=== PATIENT | female | born 1990 | race Two or more races ===

== ENCOUNTER 2016-05-29 10:42 | Emergency (ER) | payer MEDICAID ==
--- NOTE | 2016-05-29 11:24 | EDM.PDOC ---
ED HPI GENERAL MEDICAL PROBLEM - General Chief Complaint: General Stated Complaint: SHOULDER Time Seen by Provider: 05/29/16 11:00 Source of Information: Reports: Patient History Limitations: Reports: No limitations - History of Present Illness INITIAL COMMENTS - FREE TEXT/NARRATIVE: History of present illness: [25-year-old female coming in presenting with complaints of right shoulder stiffness and pain. Patient indicates she sometimes has muscle spasms which causes stiffness and decreases her range of motion until she gets some muscle relaxers. Patient also indicates that she is having an acute flareup of her hidradenitis, and would like a steroid burst as well as an Rx for secondary infection until she can get in to be evaluated and establish with a xerox machine mechanic.] Review of systems: As per history of present illness and below otherwise all systems reviewed and negative. Past medical history: As per history of present illness and as reviewed below otherwise noncontributory. Surgical history: As per history of present illness and as reviewed below otherwise noncontributory. Social history: No reported history of drug or alcohol abuse. Family history: As per history of present illness and as reviewed below otherwise noncontributory. Physical exam: HEENT: Atraumatic, normocephalic, pupils reactive, negative for conjunctival pallor or scleral icterus, mucous membranes moist, throat clear, neck supple, nontender, trachea midline. Lungs: Clear to auscultation, breath sounds equal bilaterally, chest nontender. Heart: S1S2, regular, negative for clicks, rubs, or JVD. Abdomen: Soft, nondistended, nontender. Negative for masses or hepatosplenomegaly. Negative for costovertebral tenderness. Pelvis: Stable nontender. Genitourinary: Deferred. Rectal: Deferred. Extremities: Atraumatic, negative for cords or calf pain. Neurovascular unremarkable. Neuro: Awake, alert, oriented. Cranial nerves II through XII unremarkable. Cerebellum unremarkable. Motor and sensory unremarkable throughout. Exam nonfocal. General this is benign save some palpable muscle spasm in the right sternocleidomastoid region as well as the levator scapula. Diagnostics: [] Therapeutics: [] Impression: [Muscle spasm, hidradenitis exacerbation, secondary skin infection] Plan: [Structure, Medrol Dosepak, Keflex] Definitive disposition and diagnosis as appropriate pending reevaluation and review of above. - Related Data Allergies Allergy/AdvReac Type Severity Reaction Status Date / Time No Known Allergies Allergy Verified 05/29/16 11:22 Home Meds: Home Meds Cephalexin [Keflex] 500 mg PO QID #40 capsule 05/29/16 [Rx] Orphenadrine [Norflex] 100 mg PO BID #28 tab.er 05/29/16 [Rx] methylPREDNISolone [Medrol] 4 mg PO DAILY #21 tab.ds.pk 05/29/16 [Rx] ED ROS GENERAL - Review of Systems Review Of Systems: See Below (See history of present illness) ED EXAM, GENERAL - Physical Exam Exam: See Below (See history of present illness) Departure - Departure Time of Disposition: 11:27 Disposition: Home, Self-Care 01 Condition: good Clinical Impression: Muscle spasm, Axillary hidradenitis suppurativa, Skin infection, bacterial Additional Instructions: The following information is given to patients seen in the emergency department who are being discharged to home. This information is to outline your options for follow-up care. We provide all patients seen in our emergency department with a follow-up referral. The need for follow-up, as well as the timing and circumstances, are variable depending upon the specifics of your emergency department visit. If you don't have a primary care physician on staff, we will provide you with a referral. We always advise you to contact your personal physician following an emergency department visit to inform them of the circumstance of the visit and for follow-up with them and/or the need for any referrals to a consulting specialist. The emergency department will also refer you to a specialist when appropriate. This referral assures that you have the opportunity for follow-up care with a specialist. All of these measure are taken in an effort to provide you with optimal care, which includes your follow-up. Under all circumstances we always encourage you to contact your private physician who remains a resource for coordinating your care. When calling for follow-up care, please make the office aware that this follow-up is from your recent emergency room visit. If for any reason you are refused follow-up, please contact the [facility] Emergency Department at and asked to speak to the emergency department charge nurse. Take medication as directed Followup with primary care provider in one to 2 days Attempt to followup with a xerox machine mechanic Turned ED as needed as discussed
[2016-05-29 11:26] VITALS: BP 135/81
== END 2016-05-29 12:22 | disposition home or self-care (01) ==
LOC: MW.ED 10:42
DX: L73.2 Hidradenitis suppurativa (principal); M62.838 Other muscle spasm; Z79.899 Other long term (current) drug therapy
CPT/HCPCS: 99283

== ENCOUNTER 2018-09-23 15:12 | Emergency (ER) | payer MEDICAID, SELFPAY ==
[2018-09-23] MEDS ORDERED: Albuterol/Ipratropium 3.0-0.5 MG/3 ML Neb Soln NEB ONE (15:14)
[2018-09-23] MEDS ORDERED: methylPREDNISolone Sodium Succinate 125 MG/2 ML SDV IM ONE (15:15)
--- NOTE | 2018-09-23 15:18 | EDM.PDOC ---
ED HPI GENERAL MEDICAL PROBLEM - General Chief Complaint: Respiratory Problem Stated Complaint: SOB Time Seen by Provider: 09/23/18 15:12 Source of Information: Reports: Patient History Limitations: Reports: No Limitations - History of Present Illness INITIAL COMMENTS - FREE TEXT/NARRATIVE: HISTORY AND PHYSICAL: History of present illness: Patient is a 27-year-old female who presents to the emergency room with complaints of shortness of breath since 1 PM. She states that symptoms started suddenly after walking up the stairs and have not been alleviated with rest. She was informed by her primary care provider that she may have "COPD because I breathe funny". Although she does not take any inhalers or rescue medications for her breathing. Patient denies any fever, chills, headache, change in vision, syncope or near syncope. Denies any chest pain, back pain or cough. Denies any abdominal pain, nausea, vomiting, diarrhea, constipation or dysuria. Patient has been eating and drinking appropriately. Denies any chance of Review of systems: As per history of present illness and below otherwise all systems reviewed and negative. Past medical history: As per history of present illness and as reviewed below otherwise noncontributory. Surgical history: As per history of present illness and as reviewed below otherwise noncontributory. Social history: See social history for further information Family history: As per history of present illness and as reviewed below otherwise noncontributory. Physical exam: General: Well-developed and well-nourished 27-year-old female. Alert and oriented. Nontoxic appearing and in no acute distress. HEENT: Atraumatic, normocephalic, pupils equal and reactive bilaterally, negative for conjunctival pallor or scleral icterus, mucous membranes moist, throat clear, neck supple, nontender, trachea midline. No drooling or trismus noted. No meningeal signs. No hot potato voice noted. Lungs: Clear to auscultation, breath sounds equal bilaterally, chest nontender. Heart: S1S2, regular rate and rhythm without overt murmur Abdomen: Soft, nondistended, nontender. Negative for masses or hepatosplenomegaly. Negative for costovertebral tenderness. Pelvis: Stable nontender. Skin: Intact, warm, dry. No lesions or rashes noted. Extremities: Atraumatic, moves all extremities per self without difficulty or deficits, negative for cords or calf pain. Neurovascular unremarkable. Neuro: Awake, alert, oriented. Cranial nerves II through XII unremarkable. Cerebellum unremarkable. Motor and sensory unremarkable throughout. Exam nonfocal. Notes: Patient's lung sounds are clear, oxygen saturation is within normal limits. She does appear to be hyperventilating, coaching for slow deep breathing was done. She denies any history of anxiety and does not feel anxious at this time. We'll do a DuoNeb for supportive care. Chest x-ray shows no acute findings. Supportive care measures were reviewed and discussed. Voices understanding and is agreeable to plan of care. Denies any further questions or concerns at this time. Diagnostics: Chest x-ray Therapeutics: Solu-Medrol IM, DuoNeb Prescription: Pro-Air Inhaler Impression: Dyspnea Plan: 1. Take the inhaler as needed 2. Tylenol and/or Ibuprofen as needed. 3. Follow up with your primary care provider as discussed. Return to the ED as needed and as discussed. Definitive disposition and diagnosis as appropriate pending reevaluation and review of above. 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 ED EXAM, GENERAL - Physical Exam Exam: See Below (See dictation) Course - Vital Signs Last Recorded V/S: Last Vital Signs Temp 96.7 F 09/23/18 15:14 Pulse 94 09/23/18 15:14 Resp 28 H 09/23/18 15:14 BP 115/74 09/23/18 15:14 Pulse Ox 100 09/23/18 15:14 - Orders/Labs/Meds Orders: Active Orders 24 hr Category Date Time Status EKG 12 Lead [EKG Documentation Completion] [RC] STAT Care 09/23/18 15:15 Inactive RT Aerosol Therapy [RC] ASDIRECTED Care 09/23/18 15:14 Active Meds: Medications Discontinued Medications Generic Name Dose Route Start Last Admin Trade Name Emmanuel PRN Reason Stop Dose Admin Albuterol/Ipratropium 3 ml 09/23/18 15:14 09/23/18 15:20 Duoneb 3.0-0.5 Mg/3 Ml NEB 09/23/18 15:15 3 ml ONETIME ONE Administration Methylprednisolone Sodium Succinate 125 mg 09/23/18 15:15 09/23/18 15:20 Solu-Medrol IM 09/23/18 15:16 125 mg ONETIME ONE Administration Departure - Departure Time of Disposition: 16:00 Disposition: Home, Self-Care 01 Clinical Impression: Dyspnea Qualifiers: Dyspnea type: unspecified Qualified Code(s): R06.00 - Dyspnea, unspecified - Discharge Information Instructions: Hyperventilation Forms: ED Department Discharge Additional Instructions: The following information is given to patients seen in the emergency department who are being discharged to home. This information is to outline your options for follow-up care. We provide all patients seen in our emergency department with a follow-up referral. The need for follow-up, as well as the timing and circumstances, are variable depending upon the specifics of your emergency department visit. If you don't have a primary care physician on staff, we will provide you with a referral. We always advise you to contact your personal physician following an emergency department visit to inform them of the circumstance of the visit and for follow-up with them and/or the need for any referrals to a consulting specialist. The emergency department will also refer you to a specialist when appropriate. This referral assures that you have the opportunity for follow-up care with a specialist. All of these measure are taken in an effort to provide you with optimal care, which includes your follow-up. Under all circumstances we always encourage you to contact your private physician who remains a resource for coordinating your care. When calling for follow-up care, please make the office aware that this follow-up is from your recent emergency room visit. If for any reason you are refused follow-up, please contact the [facility] Emergency Department at and asked to speak to the emergency department charge nurse. [facility] [address] [place] [address] [facility] [address] [place] [address] 1. Take the inhaler as needed 2. Tylenol and/or Ibuprofen as needed. 3. Follow up with your primary care provider as discussed. Return to the ED as needed and as discussed. - My Orders Last 24 Hours: My Active Orders 09/23/18 15:14 RT Aerosol Therapy [RC] ASDIRECTED 09/23/18 15:15 EKG 12 Lead [EKG Documentation Completion] [RC] STAT - Assessment/Plan Last 24 Hours: My Active Orders 09/23/18 15:14 RT Aerosol Therapy [RC] ASDIRECTED 09/23/18 15:15 EKG 12 Lead [EKG Documentation Completion] [RC] STAT
--- NOTE | 2018-09-23 15:57 | CR ---
INDICATION: shortness of breath x 2hrs TECHNIQUE: Chest 2 views. COMPARISON: None. FINDINGS: Cardiovascular and mediastinum: Heart size and vasculature are normal in caliber and appearance. Mediastinum is within normal limits. Lungs and pleural spaces: Lungs are clear. No sign of infiltrate or mass. No sign of pleural effusion. No pneumothorax. Bones and soft tissues: No significant findings. IMPRESSION: Unremarkable chest. Dictated by: Macario Mathews MD @ 09/23/2018 15:55:55 (Electronically Signed)
[2018-09-23 16:14] VITALS: BP 124/76; PULSE 99
== END 2018-09-23 16:10 | disposition home or self-care (01) ==
LOC: MW.ED 15:12
DX: R06.02 Shortness of breath (principal)
CPT/HCPCS: 71046; 94640; 96372; 99285; J2930; 99283; J7620-GY

== ENCOUNTER 2021-07-25 12:11 | Emergency (ER) | payer MEDICAID ==
[2021-07-25 13:13] LABS: BLOOD UREA NITROGEN,BUN 17 mg/dL (7.0-18.0); CARBON DIOXIDE,CO2 25.2 mmol/L (21.0-32.0); CHLORIDE,CL 104 mmol/L (98-107); GLUCOSE RANDOM 94 mg/dL (74-106); POTASSIUM,K 3.7 mmol/L (3.5-5.1); SODIUM,NA 136 mmol/L (136-145)
[2021-07-25] MEDS ORDERED: ESTRADIOL VALERATE IM ONE (14:16)
[2021-07-25] MEDS ORDERED: Water For Injection, Sterile 10 ML SDV INJECT ONE (15:18)
[2021-07-25] MEDS ORDERED: Water For Injection, Sterile 20 ML SDV INJECT ONE (15:30)
[2021-07-25 16:17] VITALS: BP 143/83; PULSE 94
== END 2021-07-25 16:16 | disposition home or self-care (01) ==
LOC: MW.ED 12:11
DX: N92.0 Excessive and frequent menstruation with regular cycle (principal)
CPT/HCPCS: 36415; 80053; 84443; 84703; 85014; 85018; 85025; 96372; 99284; J1050; J1410; 99283

== ENCOUNTER 2022-10-02 11:31 | Emergency (ER) | payer MEDICAID ==
[2022-10-02] MEDS ORDERED: Sodium Chloride 0.9% 500 ML IV ONE (11:45)
[2022-10-02] MEDS ORDERED: Sodium Chloride 0.9% 2.5 ML Syringe FLUSH PRN (11:46)
[2022-10-02] MEDS ORDERED: Sodium Chloride 0.9% 10 ML Syringe FLUSH PRN (11:46)
[2022-10-02 12:17] LABS: BASOPHILS PERCENT AUTO 0.1 % (0.0-1.5); EOSINOPHILS ABSOLUTE AUTO 0.2 K/uL (0.0-0.7); EOSINOPHILS PERCENT AUTO 2.1 % (0.0-7.0); HEMATOCRIT 27.8 % (36.0-46.0); HEMOGLOBIN 9.3 g/dL (12.0-16.0); LYMPHOCYTES ABSOLUTE AUTO 1.1 K/uL (0.6-2.4); LYMPHOCYTES PERCENT AUTO 13.6 % (16.0-40.0); MEAN CORPUSCULAR HEMOGLOBIN 30.3 pg (27.0-32.0); MEAN CORPUSCULAR HGB CONC 33.5 g/dL (31.0-37.0); MEAN CORPUSCULAR VOLUME 90.6 fL (80.0-98.0); MONOCYTES ABSOLUTE AUTO 0.4 K/uL (0.0-0.8); MONOCYTES PERCENT AUTO 4.5 % (0.0-15.0); NEUTROPHILS ABSOLUTE AUTO 6.2 K/uL (1.4-5.7); NEUTROPHILS PERCENT AUTO 79.7 % (48.0-80.0); NRBC ABSOLUTE 0 K/uL; PLATELET COUNT,PLT 294 K/uL (150-400); RED BLOOD CELL COUNT 3.07 M/uL (4.30-5.90); WHITE BLOOD CELL COUNT,WBC 7.74 K/uL (4.0-11.0)
[2022-10-02 12:43] LABS: D-DIMER QUANTITATIVE 0.45 mg/L FEU (0.00-0.50); INR 1.01 (0.86-1.11); PTT,PARTIAL THROMBOPLSTIN TIME 27.7 SEC (23.9-30.7)
[2022-10-02 12:46] LABS: A/G RATIO 0.5 (0.9-1.6); ALANINE AMINOTRANSFERASE,ALT 16 IU/L (14-63); ALBUMIN 2.3 g/dL (3.4-5.0); ALKALINE PHOSPHATASE 139 U/L (46-116); ASPARTATE AMNIOTRANSFERASE,AST 8 IU/L (15-37); BILIRUBIN TOTAL 0.2 mg/dL (0.2-1.0); BLOOD UREA NITROGEN,BUN 7 mg/dL (7.0-18.0); CALCIUM 8.4 mg/dL (8.5-10.1); CARBON DIOXIDE,CO2 22.3 mmol/L (21.0-32.0); CHLORIDE,CL 106 mmol/L (98-107); CREATININE 0.8 mg/dL (0.6-1.0); EST CRCL DRUG DOSING (CG) 87.99 mL/min; GLUCOSE RANDOM 163 mg/dL (74-106); LACTATE DEHYDROGENASE,LDH 129 U/L (81-234); PROTEIN TOTAL,TP 6.6 g/dL (6.4-8.2); SODIUM,NA 139 mmol/L (136-145)
[2022-10-02 12:55] LABS: ESTIMATED GFR 101 mL/min (>60)
[2022-10-02 14:19] LABS: CREATININE,URINE RAND 167.7 mg/dL; PROTEIN CREATININE RATIO,URINE 0.2; PROTEIN,URINE RANDOM 36.2 mg/dL (<11.9)
[2022-10-02 15:58] VITALS: BP 113/67; PULSE 87
== END 2022-10-02 15:58 | disposition home or self-care (01) ==
LOC: MW.ED 11:31
DX: O99.513 Diseases of the respiratory system complicating pregnancy, third trimester (principal); J00 Acute nasopharyngitis [common cold]; Z20.822 Contact with and (suspected) exposure to COVID-19; Z3A.33 33 weeks gestation of pregnancy
CPT/HCPCS: 36415; 71045; 80053; 82570; 83615; 83880; 84156; 84484; 85025; 85379; 85610; 85730; 87635; 93005; 96360; 99284; J3490; J7040; 93010; 99283; U0002

== ENCOUNTER 2023-12-01 21:39 | Emergency (ER) | payer MEDICAID, BC ==
[2023-12-01] MEDS: Ketorolac 30 MG/ML SDV IVPUSH ONE (22:37)
[2023-12-01] MEDS: Sodium Chloride 0.9% 2.5 ML Syringe FLUSH PRN (22:38)
[2023-12-01] MEDS: Sodium Chloride 0.9% 10 ML Syringe FLUSH PRN (22:38)
[2023-12-01] MEDS: Lidocaine 1% 5 ML VIAL INJECT ONE (22:38)
[2023-12-01] MEDS: Sodium Chloride 0.9% 1,000 ML IV ONE (22:39)
[2023-12-01 22:52] LABS: BASOPHILS ABSOLUTE AUTO 0.03 K/uL (0.00-0.20); BASOPHILS PERCENT AUTO 0.2 % (0.0-1.0); EOSINOPHILS ABSOLUTE AUTO 0.18 K/uL (0.00-0.45); EOSINOPHILS PERCENT AUTO 1.3 % (0.0-6.0); HEMATOCRIT 35.1 % (37.0-47.0); HEMOGLOBIN 11.8 g/dL (12.0-16.0); IMMATURE GRAN ABSOLUTE AUTO 0.03 K/uL (0.00-0.05); IMMATURE GRAN PERCENT AUTO 0.2 % (0.0-0.4); LYMPHOCYTES ABSOLUTE AUTO 2.18 K/uL (1.00-4.80); LYMPHOCYTES PERCENT AUTO 15.8 % (24.0-44.0); MEAN CORPUSCULAR HEMOGLOBIN 30.5 pg (28.0-32.0); MEAN CORPUSCULAR HGB CONC 33.6 g/dL (32.0-36.0); MEAN CORPUSCULAR VOLUME 90.7 fL (83.0-99.0); MEAN PLATELET VOLUME 11.4 fL (9.4-12.3); MONOCYTES ABSOLUTE AUTO 0.68 K/uL (0.00-0.80); MONOCYTES PERCENT AUTO 4.9 % (0.0-8.0); NEUTROPHILS ABSOLUTE AUTO 10.72 K/uL (1.80-7.70); NEUTROPHILS PERCENT AUTO 77.6 % (41.0-71.0); PLATELET COUNT,PLT 295 K/uL (150-400); RED BLOOD CELL COUNT 3.87 M/uL (4.10-5.30); WHITE BLOOD CELL COUNT,WBC 13.82 K/uL (3.9-11.3)
[2023-12-01] MEDS: Morphine 4 MG/ML Syringe IVPUSH ONE (23:09)
[2023-12-01] MEDS: Ondansetron 4 MG/2 ML SDV IVPUSH ONE (23:09)
[2023-12-01 23:15] LABS: A/G RATIO 0.8 (0.9-1.6); ALBUMIN 3.2 g/dL (3.4-5.0); BILIRUBIN TOTAL 0.3 mg/dL (0.2-1.0); CALCIUM 8.5 mg/dL (8.5-10.1); CARBON DIOXIDE,CO2 27.6 mmol/L (21.0-32.0); CREATININE 1.1 mg/dL (0.6-1.0); EST CRCL DRUG DOSING (CG) 63.4 mL/min; POTASSIUM,K 3.7 mmol/L (3.5-5.1); PROTEIN TOTAL,TP 7.4 g/dL (6.4-8.2)
[2023-12-01 23:17] LABS: LACTIC ACID 1.2 mmol/L (0.4-2.0)
[2023-12-01 23:31] LABS: MAGNESIUM 1.7 mg/dL (1.8-2.4)
[2023-12-02] MEDS: Cefuroxime 250 MG Tab PO ONE (00:03)
[2023-12-02] MEDS: Sulfamethoxazole/Trimethoprim 800-160 MG Tab PO ONE (00:03)
[2023-12-02 00:14] VITALS: BP 125/65; PULSE 90
== END 2023-12-02 00:13 | disposition home or self-care (01) ==
LOC: MW.ED 21:39
DX: L03.116 Cellulitis of left lower limb (principal); Z79.899 Other long term (current) drug therapy; Z75.8 Other problems related to medical facilities and other health care
CPT/HCPCS: 10060; 36415; 80053; 83605; 83690; 83735; 85025; 87040; 96361; 96374; 96375; 99283; A9270; J1885; J2270; J2405; J3490; J7030

== ENCOUNTER 2024-01-14 19:58 | Emergency (ER) | payer MEDICAID ==
[2024-01-14] MEDS: Sulfamethoxazole/Trimethoprim 800-160 MG Tab PO ONE (21:11)
[2024-01-14] MEDS: cefTRIAXone 1 GM in Lidocaine 1% 2.1 ML IM ONE (21:11)
[2024-01-14] MEDS: Lidocaine 1% with EPINEPHrine 1:100,000 10 ML MDV INJECT ONE (21:12)
[2024-01-14] MEDS ORDERED: Naloxone 0.4 MG/ML SDV IVPUSH PRN (21:18)
[2024-01-14] MEDS: HYDROmorphone 1 MG/ML Syringe IM ONE (21:25)
[2024-01-14 22:22] VITALS: BP 132/72; PULSE 92
== END 2024-01-14 22:21 | disposition home or self-care (01) ==
LOC: MW.ED 19:58
DX: L02.415 Cutaneous abscess of right lower limb (principal); L03.115 Cellulitis of right lower limb; E11.9 Type 2 diabetes mellitus without complications; E66.9 Obesity, unspecified; Z79.899 Other long term (current) drug therapy; Z79.84 Long term (current) use of oral hypoglycemic drugs; Z68.43 Body mass index [BMI] 50.0-59.9, adult
CPT/HCPCS: 10060; 96372; 99283; A9270; J0696; J1171; J3490

== ENCOUNTER 2024-02-03 18:29 | Emergency (ER) | payer MEDICAID ==
[2024-02-03] MEDS: Diazepam 5 MG Tab PO ONE (19:30)
[2024-02-03] MEDS: Azithromycin 250 MG Tab PO STA (19:30)
[2024-02-03 19:41] VITALS: BP 176/95; PULSE 86
== END 2024-02-03 19:42 | disposition home or self-care (01) ==
LOC: MW.ED 18:29
DX: I88.9 Nonspecific lymphadenitis, unspecified (principal); E11.9 Type 2 diabetes mellitus without complications; E66.9 Obesity, unspecified; Z68.43 Body mass index [BMI] 50.0-59.9, adult
CPT/HCPCS: 99283; A9270

== ENCOUNTER 2024-02-03 21:42 | Emergency (ER) | payer MEDICAID ==
[2024-02-03] MEDS: Cyclobenzaprine 10 MG Tab PO ONE (22:51)
[2024-02-03] MEDS: Morphine 4 MG/ML Syringe IVPUSH ONE (22:53)
[2024-02-03] MEDS: LORazepam 2 MG/ML SDV IVPUSH ONE (22:53)
[2024-02-03 23:04] LABS: BASOPHILS ABSOLUTE AUTO 0.04 K/uL (0.00-0.20); BASOPHILS PERCENT AUTO 0.3 % (0.0-1.0); EOSINOPHILS ABSOLUTE AUTO 0.24 K/uL (0.00-0.45); EOSINOPHILS PERCENT AUTO 1.9 % (0.0-6.0); HEMATOCRIT 35.7 % (37.0-47.0); HEMOGLOBIN 12.1 g/dL (12.0-16.0); IMMATURE GRAN ABSOLUTE AUTO 0.04 K/uL (0.00-0.05); IMMATURE GRAN PERCENT AUTO 0.3 % (0.0-0.4); LYMPHOCYTES PERCENT AUTO 20.1 % (24.0-44.0); MEAN CORPUSCULAR HEMOGLOBIN 30.1 pg (28.0-32.0); MEAN CORPUSCULAR HGB CONC 33.9 g/dL (32.0-36.0); MEAN CORPUSCULAR VOLUME 88.8 fL (83.0-99.0); MEAN PLATELET VOLUME 11.3 fL (9.4-12.3); MONOCYTES ABSOLUTE AUTO 0.66 K/uL (0.00-0.80); MONOCYTES PERCENT AUTO 5.1 % (0.0-8.0); NEUTROPHILS ABSOLUTE AUTO 9.38 K/uL (1.80-7.70); NEUTROPHILS PERCENT AUTO 72.3 % (41.0-71.0); PLATELET COUNT,PLT 346 K/uL (150-400); RED BLOOD CELL COUNT 4.02 M/uL (4.10-5.30); WHITE BLOOD CELL COUNT,WBC 12.96 K/uL (3.9-11.3)
[2024-02-03 23:22] LABS: CALCIUM 9.4 mg/dL (8.5-10.1); CARBON DIOXIDE,CO2 28.7 mmol/L (21.0-32.0); EST CRCL DRUG DOSING (CG) 69.1 mL/min; POTASSIUM,K 3.5 mmol/L (3.5-5.1)
[2024-02-04] MEDS: HYDROmorphone 1 MG/ML Syringe IVPUSH ONE ×2 (01:10→04:30)
[2024-02-04] MEDS: Iopamidol 755 MG/ML 500 ML Multipack Bottle IVPUSH STA (07:45)
[2024-02-04 08:27] VITALS: BP 139/88; PULSE 89
== END 2024-02-04 08:27 | disposition home or self-care (01) ==
LOC: MW.ED 21:42
DX: M43.6 Torticollis (principal); E11.9 Type 2 diabetes mellitus without complications; E66.9 Obesity, unspecified; Z68.43 Body mass index [BMI] 50.0-59.9, adult; Z79.899 Other long term (current) drug therapy
CPT/HCPCS: 36415; 70496; 70498; 80048; 85025; 96374; 96375; 96376; 99284; A9270; J1171; J2060; J2270; Q9967

== ENCOUNTER 2024-03-09 13:28 | Emergency (ER) | payer MEDICAID ==
[2024-03-09 15:20] LABS: BASOPHILS ABSOLUTE AUTO 0.03 K/uL (0.00-0.20); BASOPHILS PERCENT AUTO 0.3 % (0.0-1.0); EOSINOPHILS ABSOLUTE AUTO 0.59 K/uL (0.00-0.45); EOSINOPHILS PERCENT AUTO 5.6 % (0.0-6.0); HEMATOCRIT 25.1 % (37.0-47.0); HEMOGLOBIN 8.3 g/dL (12.0-16.0); IMMATURE GRAN ABSOLUTE AUTO 0.25 K/uL (0.00-0.05); IMMATURE GRAN PERCENT AUTO 2.4 % (0.0-0.4); LYMPHOCYTES ABSOLUTE AUTO 1.85 K/uL (1.00-4.80); LYMPHOCYTES PERCENT AUTO 17.6 % (24.0-44.0); MEAN CORPUSCULAR HEMOGLOBIN 30.1 pg (28.0-32.0); MEAN CORPUSCULAR HGB CONC 33.1 g/dL (32.0-36.0); MEAN CORPUSCULAR VOLUME 90.9 fL (83.0-99.0); MEAN PLATELET VOLUME 11.1 fL (9.4-12.3); MONOCYTES ABSOLUTE AUTO 0.67 K/uL (0.00-0.80); MONOCYTES PERCENT AUTO 6.4 % (0.0-8.0); NEUTROPHILS ABSOLUTE AUTO 7.13 K/uL (1.80-7.70); NEUTROPHILS PERCENT AUTO 67.7 % (41.0-71.0); NRBC ABSOLUTE 0.03 K/uL (0.00-0.02); NRBC PERCENT 0.3 /100WBC (0.0-0.2); PLATELET COUNT,PLT 410 K/uL (150-400); RED BLOOD CELL COUNT 2.76 M/uL (4.10-5.30); WHITE BLOOD CELL COUNT,WBC 10.52 K/uL (3.9-11.3)
[2024-03-09 15:55] LABS: A/G RATIO 0.8 (0.9-1.6); ALANINE AMINOTRANSFERASE,ALT 25 IU/L (14-63); ALBUMIN 3.4 g/dL (3.4-5.0); ALKALINE PHOSPHATASE 127 U/L (46-116); ASPARTATE AMNIOTRANSFERASE,AST 20 IU/L (15-37); BILIRUBIN TOTAL 1.2 mg/dL (0.2-1.0); BLOOD UREA NITROGEN,BUN 9 mg/dL (7.0-18.0); CALCIUM 9.1 mg/dL (8.5-10.1); CARBON DIOXIDE,CO2 24.3 mmol/L (21.0-32.0); CHLORIDE,CL 103 mmol/L (98-107); CREATININE 0.9 mg/dL (0.6-1.0); GLUCOSE RANDOM 92 mg/dL (74-106); LIPASE 62 U/L (16-77); POTASSIUM,K 3.7 mmol/L (3.5-5.1); PROTEIN TOTAL,TP 7.7 g/dL (6.4-8.2); SODIUM,NA 137 mmol/L (136-145)
[2024-03-09 15:59] LABS: ESTIMATED GFR 87 mL/min (>60)
[2024-03-09] MEDS: Iopamidol 755 Mg/ML 100 ML Bottle IVPUSH ONE (16:19)
[2024-03-09 17:51] VITALS: BP 130/69; PULSE 87
== END 2024-03-09 17:51 | disposition home or self-care (01) ==
LOC: MW.ED 13:28
DX: K91.870 Postprocedural hematoma of a digestive system organ or structure following a digestive system procedure (principal); E11.9 Type 2 diabetes mellitus without complications; E66.9 Obesity, unspecified; Z87.891 Personal history of nicotine dependence; Z75.8 Other problems related to medical facilities and other health care
CPT/HCPCS: 36415; 74177; 80053; 83690; 85025; 99284; Q9967; 99283

== ENCOUNTER 2024-10-21 00:23 | Emergency (ER) | payer SELFPAY ==
[2024-10-21 02:08] VITALS: PULSE 75
[2024-10-21 02:21] VITALS: BP 132/86
== END 2024-10-21 02:27 | disposition home or self-care (01) ==
LOC: MW.ED 00:23
DX: M25.562 Pain in left knee (principal); M54.42 Lumbago with sciatica, left side; Z79.899 Other long term (current) drug therapy; E11.9 Type 2 diabetes mellitus without complications
CPT/HCPCS: 73562; 82947; 93971; 99284; A9270; 99283